=== PATIENT | female | born 1975 | race Caucasian/White ===

== ENCOUNTER 2016-11-12 12:18 | Outpatient (CLI) | payer OTHER ==
--- NOTE | 2016-11-12 12:31 | DIAGNOSTIC IMAGING REPORT ---
PROCEDURE: XR SHOULDER 2 OR MORE VW-LEFT INDICATION: LEFT SHOULDER PAIN,UMSEPCIFIED CHRONICITY TECHNIQUE: Three views. COMPARISON: None. FINDINGS: Osseous structures and joint spaces are normal. IMPRESSION: 1. Normal left shoulder.
== END 2016-11-12 23:00 ==
LOC: XR SRH 12:18
DX: M25.512 Pain in left shoulder (principal)